=== PATIENT | male | born 1970 ===

== ENCOUNTER 2018-08-09 15:50 | Emergency (ER) | payer BC, OTHER ==
[2018-08-09 16:20] VITALS: BP 159/101
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
== END 2018-08-09 18:17 | disposition home or self-care (01) ==
LOC: UCEAST 15:50
DX: M54.6 Pain in thoracic spine (principal); M54.5 Low back pain; M50.323 Other cervical disc degeneration at C6-C7 level; Z88.2 Allergy status to sulfonamides; Z87.891 Personal history of nicotine dependence
CPT/HCPCS: 72125; 72128; 72131; 81003; 99202; G0463